=== PATIENT | female | born 1955 | race Native Hawaiian/Other Pacific Islander ===

== ENCOUNTER 2016-08-12 10:33 | Outpatient (CLI) | payer OTHER | END 2016-08-12 19:26 | disposition home or self-care (01) | LOC: MAMMO 10:33 | DX: Z12.31 Encounter for screening mammogram for malignant neoplasm of breast (principal) | CPT/HCPCS: G0202-TC ==

== ENCOUNTER 2017-03-03 11:15 | Outpatient (CLI) | payer OTHER | END 2017-03-03 12:45 | disposition home or self-care (01) | LOC: RAD 11:15 | DX: R07.82 Intercostal pain (principal); G44.309 Post-traumatic headache, unspecified, not intractable ==

== ENCOUNTER 2017-10-27 11:53 | Outpatient (CLI) | payer OTHER | END 2017-10-27 20:24 | disposition home or self-care (01) | LOC: MAMMO 11:53 | DX: Z12.31 Encounter for screening mammogram for malignant neoplasm of breast (principal) ==

== ENCOUNTER 2018-06-23 22:19 | Outpatient (CLI) | payer OTHER | END 2018-06-23 22:32 | disposition short-term general hospital (02) | LOC: AMB 22:19 | DX: R07.81 Pleurodynia (principal); V47.0XXA Car driver injured in collision with fixed or stationary object in nontraffic accident, initial encounter; Y93.89 Activity, other specified; Y92.89 Other specified places as the place of occurrence of the external cause | CPT/HCPCS: A0425; A0427 ==

== ENCOUNTER 2018-06-23 22:38 | Emergency (ER) | payer OTHER ==
[~2018-06-23] VITALS: Ht 170.2 cm; Wt 83.9 kg
[2018-06-23 23:12] LABS: POTASSIUM 2.5 mmol/L (3.6-5.2)
[2018-06-23 23:13] LABS: PLATELET COUNT 225 K/uL (152-353)
[2018-06-24 02:15] VITALS: BP 87/54; TEMP 98.3
== END 2018-06-24 02:30 | disposition short-term general hospital (02) ==
LOC: ED 22:38
PROVIDERS: Internal Medicine
PROC: 0T9B70Z Drainage of Bladder with Drainage Device, Via Natural or Artificial Opening (ICD-10-PCS; principal; 2018-06-23)
PROC: 30233N1 Transfusion of Nonautologous Red Blood Cells into Peripheral Vein, Percutaneous Approach (ICD-10-PCS; 2018-06-23)
DX: S36.039A Unspecified laceration of spleen, initial encounter (principal); S39.81XA Other specified injuries of abdomen, initial encounter; S22.42XA Multiple fractures of ribs, left side, initial encounter for closed fracture; E87.6 Hypokalemia; V47.0XXA Car driver injured in collision with fixed or stationary object in nontraffic accident, initial encounter; Y92.89 Other specified places as the place of occurrence of the external cause
CPT/HCPCS: 36415; 36430; 51702; 80053; 80307; 80320; 81000; 83735; 85027; 86850; 86900; 86901; 86922; 93005; 96360; 99285; J1200; P9016; Q9963

== ENCOUNTER 2018-12-10 10:56 | Outpatient (CLI) | payer OTHER | END 2018-12-10 20:32 | disposition home or self-care (01) | LOC: MAMMO 10:56 | DX: Z12.31 Encounter for screening mammogram for malignant neoplasm of breast (principal) ==

== ENCOUNTER 2020-07-27 09:39 | Outpatient (CLI) | payer OTHER | END 2020-07-27 22:17 | disposition home or self-care (01) | LOC: MAMMO 09:39 | PROVIDERS: ATTEND Nurse Practitioner Family | DX: Z12.31 Encounter for screening mammogram for malignant neoplasm of breast (principal) ==

== ENCOUNTER 2020-08-14 10:26 | Outpatient (CLI) | payer OTHER | END 2020-08-14 19:32 | disposition home or self-care (01) | LOC: MAMMO 10:26 | PROVIDERS: ATTEND Nurse Practitioner Family | DX: R92.8 Other abnormal and inconclusive findings on diagnostic imaging of breast (principal) ==

== ENCOUNTER 2021-08-08 11:30 | Emergency (ER) | payer OTHER ==
[~2021-08-08] VITALS: Ht 170.2 cm; Wt 83.9 kg
[2021-08-08 11:30] VITALS: TEMP 97.7
[2021-08-08 13:10] VITALS: BP 152/74
== END 2021-08-08 13:10 | disposition home or self-care (01) ==
LOC: ED 11:30
DX: S16.1XXA Strain of muscle, fascia and tendon at neck level, initial encounter (principal); S39.012A Strain of muscle, fascia and tendon of lower back, initial encounter; V44.5XXA Car driver injured in collision with heavy transport vehicle or bus in traffic accident, initial encounter; Y92.89 Other specified places as the place of occurrence of the external cause
CPT/HCPCS: 96372; 99283

== ENCOUNTER 2022-09-06 13:57 | Outpatient (CLI) | payer OTHER ==
[2022-09-06 15:03] LABS: PLATELET COUNT 497 K/uL (152-353)
== END 2022-09-06 19:23 | disposition home or self-care (01) ==
LOC: LABW 13:57 → US 13:57
PROVIDERS: ATTEND Student in an Organized Health Care Education/Training Program
DX: Z01.89 Encounter for other specified special examinations (principal); N28.89 Other specified disorders of kidney and ureter; D63.1 Anemia in chronic kidney disease; E79.0 Hyperuricemia without signs of inflammatory arthritis and tophaceous disease; R80.8 Other proteinuria; R94.6 Abnormal results of thyroid function studies; D50.8 Other iron deficiency anemias; E78.2 Mixed hyperlipidemia; E55.9 Vitamin D deficiency, unspecified; Z79.899 Other long term (current) drug therapy; E11.65 Type 2 diabetes mellitus with hyperglycemia; N18.9 Chronic kidney disease, unspecified; I12.9 Hypertensive chronic kidney disease with stage 1 through stage 4 chronic kidney disease, or unspecified chronic kidney disease
CPT/HCPCS: 36415; 80053; 80074; 81002; 82306; 82550; 82570; 83036; 83516; 83735; 83970; 84100; 84156; 84165; 84550; 85027; 86037; 86160; 86592; 87535; G0432

== ENCOUNTER 2022-09-10 09:30 | Outpatient (CLI) | payer OTHER | END 2022-09-10 19:06 | disposition home or self-care (01) | LOC: US 09:30 | PROVIDERS: ATTEND Student in an Organized Health Care Education/Training Program | DX: N28.89 Other specified disorders of kidney and ureter (principal); D63.1 Anemia in chronic kidney disease; E83.89 Other disorders of mineral metabolism; E79.0 Hyperuricemia without signs of inflammatory arthritis and tophaceous disease; R80.8 Other proteinuria; N18.9 Chronic kidney disease, unspecified; I12.9 Hypertensive chronic kidney disease with stage 1 through stage 4 chronic kidney disease, or unspecified chronic kidney disease ==

== ENCOUNTER 2022-12-24 11:56 | Outpatient (CLI) | payer OTHER | END 2022-12-24 22:05 | disposition home or self-care (01) | LOC: MAMMO 11:56 | PROVIDERS: ATTEND Registered Nurse | DX: Z12.31 Encounter for screening mammogram for malignant neoplasm of breast (principal) ==

== ENCOUNTER 2023-01-03 11:16 | Outpatient (CLI) | payer OTHER ==
[2023-01-03 11:54] LABS: PLATELET COUNT 364 K/uL (152-353)
[2023-01-03 13:17] LABS: POTASSIUM 4.2 mmol/L (3.6-5.2)
== END 2023-01-03 19:18 | disposition home or self-care (01) ==
LOC: LABW 11:16
PROVIDERS: ATTEND Student in an Organized Health Care Education/Training Program
DX: I12.9 Hypertensive chronic kidney disease with stage 1 through stage 4 chronic kidney disease, or unspecified chronic kidney disease (principal); N18.9 Chronic kidney disease, unspecified; D63.1 Anemia in chronic kidney disease; E79.0 Hyperuricemia without signs of inflammatory arthritis and tophaceous disease; R80.8 Other proteinuria; E11.65 Type 2 diabetes mellitus with hyperglycemia; E55.9 Vitamin D deficiency, unspecified
CPT/HCPCS: 36415; 80053; 81002; 82306; 82570; 83036; 83735; 83970; 84100; 84156; 84550; 85027

== ENCOUNTER 2023-01-22 13:29 | Outpatient (CLI) | payer OTHER | END 2023-01-22 19:27 | disposition home or self-care (01) | LOC: CT 13:29 | PROVIDERS: ATTEND Registered Nurse | DX: R10.31 Right lower quadrant pain (principal) | CPT/HCPCS: Q9963 ==